=== PATIENT | male | born 2000 | race Caucasian/White ===

== ENCOUNTER 2022-09-08 21:45 | Emergency (ER) | payer SELFPAY ==
[~2022-09-08] VITALS: Ht 185.4 cm; Wt 95.0 kg
[2022-09-08 22:00] VITALS: BP 155/90
[2022-09-08 22:15] VITALS: BP 134/90
[2022-09-08 22:30] VITALS: BP 129/88
[2022-09-08] MEDS ORDERED: TRAMADOL HCL50 MG PO (22:32)
[2022-09-08] MEDS ORDERED: MOTRIN800 MG PO (22:32)
[2022-09-08 22:46] VITALS: BP 131/80
== END 2022-09-08 23:05 | disposition home or self-care (01) | DRG 563 ==
LOC: ED 21:45
DX: S62.324A Displaced fracture of shaft of fourth metacarpal bone, right hand, initial encounter for closed fracture (principal); W01.0XXA Fall on same level from slipping, tripping and stumbling without subsequent striking against object, initial encounter; Y92.002 Bathroom of unspecified non-institutional (private) residence as the place of occurrence of the external cause